=== PATIENT | female | born 1985 | race Caucasian/White ===

== ENCOUNTER 2016-08-22 20:49 | Emergency (ER) | payer MEDICARE, MEDICAID ==
[~2016-08-22] VITALS: Ht 154.9 cm; Wt 68.9 kg
[2016-08-23 00:43] VITALS: BP 156/99
== END 2016-08-23 01:13 | disposition home or self-care (01) ==
LOC: ER 20:54
DX: R21 Rash and other nonspecific skin eruption (principal); E11.9 Type 2 diabetes mellitus without complications; I10 Essential (primary) hypertension
CPT/HCPCS: 82962